=== PATIENT | female | born 1940 | race Caucasian/White ===

== ENCOUNTER 2023-10-17 12:22 | Emergency (ER) | payer OTHER, MEDICARE ==
[2023-10-17 13:51] VITALS: BP 159/60; RESP 20; TEMP 98.8; BMI 21.7
== END 2023-10-17 15:05 | disposition left against medical advice (07) ==
LOC: JER 12:22
DX: R05.9 Cough, unspecified (principal)
CPT/HCPCS: 93005; 93010; 99283-25